=== PATIENT | female | born 2005 | race Hispanic/Latino ===

== ENCOUNTER 2024-08-17 17:02 | Emergency (ER) | payer BC, SELFPAY ==
[2024-08-17 17:08] VITALS: BP 122/76; PULSE 74; RESP 12; TEMP 36.9; O2SAT 99; BMI 31.1
--- NOTE | 2024-08-17 17:31 | ED.ABDPAIN ---
HPI - Abdominal Pain <Lia Sebastian PA-C - Last Filed: 08/17/24 20:07> General Chief Complaint: Abdominal Pain Stated Complaint: Abd Pain, Appendicitis Concerns Time Seen by Provider: 08/17/24 17:31 Source: patient Mode of arrival: Ambulatory History of Present Illness HPI narrative: This is a pleasant 19-year-old female with a past medical history of endometriosis who presents to the emergency department for right-sided abdominal pain since this morning. Patient reports when she woke up she had pain on the right side of her upper abdomen that has progressively been getting worse and been moving down to her right lower quadrant. States that the pain is now focus of the right lower quadrant of her abdomen and is constant in nature. States that while she was sitting up in the car on the way here the pain slightly improved, otherwise nothing makes it better. She has not tried any pain medications. She feels nauseous but has not vomited. Denies fevers, chills, chest pain, shortness of breath, diarrhea, vaginal discharge, hematuria, dysuria. She does admit to some constipation. She is currently . She is not allergic to any medications. LMP 07/30/24. Related Data Previous Rx's Medication Instructions Recorded ondansetron 4 mg disintegrating 4 mg PO Q8H PRN nausea and 08/17/24 tablet vomiting #12 tabs Allergies Allergy/AdvReac Type Severity Reaction Status Date / Time No Known Drug Allergies Allergy Verified 08/17/24 17:12 Review of Systems <Lia Sebastian PA-C - Last Filed: 08/17/24 20:07> Review of Systems ROS Unobtainable: All systems reviewed & are unremarkable except as noted in HPI and below Patient History <Lia Sebastian PA-C - Last Filed: 08/17/24 20:07> Social History Smoking Status: Never smoker Smoking Status: Never smoker alcohol intake frequency: holidays/special occasions only Substance Use Type: does not use Exam <Lia Sebastian PA-C - Last Filed: 08/17/24 20:07> Narrative Exam Narrative: GENERAL: 19 year old patient appears stated age. Well-developed patient, in no acute distress. HEAD: Atraumatic. Normocephalic. EYES: Extraocular motions intact. No scleral icterus. No injection or drainage. ENT: Nose without bleeding, purulent drainage. Throat without erythema, tonsillar hypertrophy or exudate. Airway patent. NECK: Trachea midline. Cervical ROM intact. CARDIOVASCULAR: Regular rate and rhythm. RESPIRATORY: ?Nonlabored respirations. ?Speaking in clear, full sentences. ?Clear to auscultation. Breath sounds equal bilaterally. No wheezes, rales, or rhonchi. ? GASTROINTESTINAL: RLQ abdominal tenderness to palpation, subjective rebound. No guarding. Abdomen is soft and nondistended. Bowel sounds present. No right upper quadrant, left upper quadrant, or left lower quadrant tenderness. EXTREMITIES: No edema or joint tenderness. BACK: Nontender without deformity or crepitance. No flank tenderness. NEURO: AOx3. ?Clear speech. ?Moves all 4 extremities appropriately. SKIN: No rash or erythema of visible areas Initial Vital Signs Initial Vital Signs: Vital Signs Temperature 98.5 F 08/17/24 17:08 Pulse Rate 74 08/17/24 17:08 Respiratory Rate 12 08/17/24 17:08 Blood Pressure 122/76 08/17/24 17:08 Pulse Oximetry 99 08/17/24 17:08 Oxygen Delivery Method Room Air 08/17/24 17:08 <Deja Vazquez MD - Last Filed: 08/18/24 01:04> Initial Vital Signs Initial Vital Signs: Vital Signs Temperature 98.5 F 08/17/24 17:08 Pulse Rate 74 08/17/24 17:08 Respiratory Rate 12 08/17/24 17:08 Blood Pressure 122/76 08/17/24 17:08 Pulse Oximetry 99 08/17/24 17:08 Oxygen Delivery Method Room Air 08/17/24 17:08 Course <Lia Sebastian PA-C - Last Filed: 08/17/24 20:07> Orders Ordered: ED Orders 08/17/24 17:13 EKG-12 Lead Stat 08/17/24 17:30 Complete Blood Count AUTO DIFF Stat Comprehensive Metabolic Panel Stat Lipase Stat 08/17/24 17:47 CT abdomen pelvis w con Stat Discontinued Medications Sodium Chloride (Normal Saline 0.9%) 1,000 mls @ 1,000 mls/hr IV BOLUS ONE Stop: 08/17/24 18:46 Last Admin: 08/17/24 18:11 Dose: 1,000 mls/hr Documented By: JUNAID Ketorolac Tromethamine (Ketorolac 30 Mg/Ml Vial) 15 mg IV NOW ONE Stop: 08/17/24 17:48 Last Admin: 08/17/24 18:32 Dose: 15 mg Documented By: JUNAID Ondansetron HCl (Ondansetron 4 Mg/2 Ml Inj) 4 mg IV NOW PRN PRN Reason: Nausea And Vomiting Last Admin: 08/17/24 17:44 Dose: 4 mg Documented By: JUNAID Ondansetron HCl (Ondansetron 4 Mg Odt) 4 mg PO NOW PRN PRN Reason: Nausea And Vomiting Reevaluation(s) Reevaluation #1: On re-evaluation of patient she is feeling slightly better, nausea resolved. Time: 18:46 Vital Signs Vital signs: Vital Signs - 8 hr 08/17/24 17:08 08/17/24 20:00 Temperature 98.5 F Pulse Rate 74 71 Respiratory Rate 12 16 Blood Pressure 122/76 115/64 Pulse Oximetry 99 100 Oxygen Delivery Method Room Air <Deja Vazquez MD - Last Filed: 08/18/24 01:04> Orders Ordered: ED Orders 08/17/24 17:13 EKG-12 Lead Stat 08/17/24 17:30 Complete Blood Count AUTO DIFF Stat Comprehensive Metabolic Panel Stat Lipase Stat 08/17/24 17:47 CT abdomen pelvis w con Stat Discontinued Medications Sodium Chloride (Normal Saline 0.9%) 1,000 mls @ 1,000 mls/hr IV BOLUS ONE Stop: 08/17/24 18:46 Last Admin: 08/17/24 18:11 Dose: 1,000 mls/hr Documented By: JUNAID Ketorolac Tromethamine (Ketorolac 30 Mg/Ml Vial) 15 mg IV NOW ONE Stop: 08/17/24 17:48 Last Admin: 08/17/24 18:32 Dose: 15 mg Documented By: JUNAID Ondansetron HCl (Ondansetron 4 Mg/2 Ml Inj) 4 mg IV NOW PRN PRN Reason: Nausea And Vomiting Last Admin: 08/17/24 17:44 Dose: 4 mg Documented By: JUNAID Ondansetron HCl (Ondansetron 4 Mg Odt) 4 mg PO NOW PRN PRN Reason: Nausea And Vomiting Vital Signs Vital signs: Vital Signs - 8 hr 08/17/24 17:08 08/17/24 20:00 Temperature 98.5 F Pulse Rate 74 71 Respiratory Rate 12 16 Blood Pressure 122/76 115/64 Pulse Oximetry 99 100 Oxygen Delivery Method Room Air MDM - Abdominal Pain <Lia C RICHARD Sebastian - Last Filed: 08/17/24 20:07> Lab Data 08/17/24 17:30 08/17/24 17:30 Labs: Lab Results 08/17/24 Range/Units 17:30 WBC 11.5 H (4.5-11.0) X10^3/uL RBC 5.03 (4.0-5.2) X10^6/uL Hgb 14.9 (12.0-16.0) g/dL Hct 44.7 (36-46) % MCV 89.0 (80-100) fL MCH 29.6 (26-34) PG MCHC 33.3 (30-36) % RDW 12.7 (11.6-14.8) % Plt Count 401 H (150-400) X10^3/uL Neut % (Auto) 68.0 (50-75) % Lymph % (Auto) 23.6 L (25-40) % [place] % (Auto) 6.5 (3-14) % Eos % (Auto) 1.2 L (2-4) % Baso % (Auto) 0.7 (0-2) % Neut # (Auto) 7800 H (5966-7545) /uL Lymph # (Auto) 2700 (6984-7940) /uL [place] # (Auto) 700 (0-900) /uL Eos # (Auto) 100 (0-450) /uL Baso # (Auto) 100 (0-100) /uL Sodium 133 L (137-145) mmol/L Potassium 3.7 (3.4-5.1) mmol/L Chloride 103 (98-107) mmol/L Carbon Dioxide 26 (22-32) mmol/L BUN 11 (7-17) mg/dL Creatinine 0.55 (0.52-1.04) mg/dL Estimated GFR > 60 (>60) mL/min BUN/Creatinine Ratio 20.0 (6-22) Glucose 86 (70-100) mg/dL Calcium 9.8 (8.4-10.2) mg/dL Total Bilirubin 0.4 (0.2-1.3) mg/dL AST 32 (14-36) IU/L ALT 36 H (<35) IU/L Alkaline Phosphatase 80 (38-126) U/L Total Protein 7.9 (6.3-8.2) g/dL Albumin 4.4 (3.5-5.0) g/dL Globulin 3.5 (1.7-4.1) g/dL Albumin/Globulin Ratio 1.3 (1.0-2.8) Lipase 37 (23-300) U/L Point of care testing: Point of Care Testing Test Results Negative Urine Dip Bedside Urine Glucose Negative Bedside Urine Bilirubin - Negative Bedside Urine Ketone +/- 5 Urine Specific [place] 1.030 Bedside Urine Occult Blood - Negative Bedside Urine pH 5.5 Bedside Urine Protein - Negative Bedside Urine Urobilinogen - Negative Bedside Urine Nitrite - Negative Bedside Urine Leukocytes - Negative Esterase Imaging Data CT scan - abdomen/pelvis: Radiologist's Impression: PROCEDURE: CT ABDOMEN PELVIS W CON INDICATIONS: Right sided abd pain; concern for appy; hx endometriosis TECHNIQUE: After the administration of intravenous contrast, axial sections acquired from the lung bases to the pubic symphysis. Coronal and sagittal reformats were performed. For radiation dose reduction, the following was used: automated exposure control, adjustment of mA and/or kV according to patient size. COMPARISON: None. FINDINGS: Image quality: Diagnostic. Lower Chest: No significant findings. ABDOMEN: Liver: No solid mass. Gallbladder: No radiopaque gallstones or wall thickening. Biliary ducts: No biliary dilation. Pancreas: No ductal dilation. Spleen: Size is within normal limits. Adrenal Glands: No adrenal nodules. Kidneys and Ureters: No hydronephrosis. No solid mass. No complex renal cystic lesion which requires follow up. Stomach and Bowel: Normal colonic caliber, without significant wall thickening. The appendix is not dilated, (2/111). Peritoneum: No abnormal intraperitoneal fluid. No free air. Ventral Wall: No significant ventral hernia. Abdominal Nodes: No retroperitoneal or mesenteric adenopathy by size criteria. Small mesenteric lymph nodes. Vessels: Aorta and inferior vena cava are normal in size. PELVIS: Pelvic Organs: Retroverted uterus. Small left ovarian cyst measuring 2.2 cm, (2/122). There is a small amount of free fluid in the pelvis. Bladder: No bladder wall thickening, accounting for underdistention. Pelvic Nodes: No enlarged lymph nodes. Miscellaneous: No inguinal hernias are seen. Bones: No aggressive osseous abnormality. IMPRESSION: 1. No acute abnormality identified. The appendix is not dilated. 2. Small left ovarian cyst measuring 2.2 cm. Trace free fluid in the pelvis. This could be physiologic. MDM Narrative Medical decision making narrative: 19-year-old female with a past medical history of endometriosis presents to the emergency department for right-sided abdominal pain today. Differential diagnosis includes but is not limited to appendicitis, ovarian cyst, ovarian cyst rupture, endometriosis complication, constipation, UTI, cholecystitis, pancreatitis, electrolyte abnormality, etc. On exam patient is in no acute distress, nontoxic-appearing, all vital signs within normal limits. She does have tenderness to palpation of the right lower quadrant of the abdomen. We will obtain abdominal labs, test, treat with fluids Toradol and Zofran and obtain a CT abdomen and pelvis with IV contrast. Patient's symptoms resolved completely with Toradol and Zofran. Her labs reveal very mildly elevated WBC count 11.5 And platelets 401. Neutrophils elevated at 7800. sodium slightly decreased at 133. Remainder of electrolytes within normal limits. Normal renal function. Normal lipase at 37. CT abdomen and pelvis with IV contrast reveals no acute abnormality. The appendix is not dilated. The patient does have a small left ovarian cyst with trace free fluid in the pelvis. Had an extensive discussion with the patient about her imaging results and labs. I printed her imaging results and provide her with a copy. Her symptoms have completely resolved and she is feeling much better. Abd soft/nontender. Discussed the possibility ovarian cyst or ovarian cyst rupture contributing to her pain. Also recommended MiraLax for constipation. Discussed strict ER return precautions and prompt follow up with OBGYN and PCP. She was prescribed Zofran and recommended ibuprofen/ Tylenol for pain. Patient verbalized understanding of all information, vital signs normal, stable for discharge. <Deja Vazquez MD - Last Filed: 08/18/24 01:04> Lab Data Labs: Lab Results 08/17/24 Range/Units 17:30 WBC 11.5 H (4.5-11.0) X10^3/uL RBC 5.03 (4.0-5.2) X10^6/uL Hgb 14.9 (12.0-16.0) g/dL Hct 44.7 (36-46) % MCV 89.0 (80-100) fL MCH 29.6 (26-34) PG MCHC 33.3 (30-36) % RDW 12.7 (11.6-14.8) % Plt Count 401 H (150-400) X10^3/uL Neut % (Auto) 68.0 (50-75) % Lymph % (Auto) 23.6 L (25-40) % [place] % (Auto) 6.5 (3-14) % Eos % (Auto) 1.2 L (2-4) % Baso % (Auto) 0.7 (0-2) % Neut # (Auto) 7800 H (2858-9997) /uL Lymph # (Auto) 2700 (5385-2838) /uL [place] # (Auto) 700 (0-900) /uL Eos # (Auto) 100 (0-450) /uL Baso # (Auto) 100 (0-100) /uL Sodium 133 L (137-145) mmol/L Potassium 3.7 (3.4-5.1) mmol/L Chloride 103 (98-107) mmol/L Carbon Dioxide 26 (22-32) mmol/L BUN 11 (7-17) mg/dL Creatinine 0.55 (0.52-1.04) mg/dL Estimated GFR > 60 (>60) mL/min BUN/Creatinine Ratio 20.0 (6-22) Glucose 86 (70-100) mg/dL Calcium 9.8 (8.4-10.2) mg/dL Total Bilirubin 0.4 (0.2-1.3) mg/dL AST 32 (14-36) IU/L ALT 36 H (<35) IU/L Alkaline Phosphatase 80 (38-126) U/L Total Protein 7.9 (6.3-8.2) g/dL Albumin 4.4 (3.5-5.0) g/dL Globulin 3.5 (1.7-4.1) g/dL Albumin/Globulin Ratio 1.3 (1.0-2.8) Lipase 37 (23-300) U/L Point of care testing: Point of Care Testing Test Results Negative Urine Dip Bedside Urine Glucose Negative Bedside Urine Bilirubin - Negative Bedside Urine Ketone +/- 5 Urine Specific [place] 1.030 Bedside Urine Occult Blood - Negative Bedside Urine pH 5.5 Bedside Urine Protein - Negative Bedside Urine Urobilinogen - Negative Bedside Urine Nitrite - Negative Bedside Urine Leukocytes - Negative Esterase Discharge Plan Departure Patient Disposition: Home Clinical Impression: Cyst of left ovary Abdominal pain Qualifiers: Abdominal location: right lower quadrant Qualified Code(s): R10.31 - Right lower quadrant pain Instructions: DI for Ovarian Cyst Activity Restrictions/Additional Instructions: Dear Larissa, Your diagnosis today is Abdominal pain and ovarian cyst. Please use ibuprofen and Tylenol for pain in addition to the prescribed nausea medicine. Return to the ER immediately if you develop fevers, worsening pain, or any other concerns. Otherwise please follow up with your OBGYN for further evaluation. Please take Ibuprofen (Motrin/Advil) or Acetaminophen (Tylenol) for pain. These are available over the counter. You may take Ibuprofen 600 mg every 8 hours with food for pain. You may also take Acetaminophen 650 mg every 4-6 hours for pain. Do not exceed 3000 mg of Tylenol a day as this can cause liver damage. Do not drink alcohol with either of these medications. You may also take [id number] MiraLax if needed for constipation. Please follow up with your primary care doctor within the next 2-3 days for ER follow-up. (If you do not have a PCP you can call [phone]. to schedule an appointment with an [facility] Primary Care Provider) IF YOU DEVELOP ANY NEW OR WORSENING SYMPTOMS, RETURN TO THE ER! Please read the attached instructions, they highlight more specific treatments and interventions for you at home. Thank you for letting me participate in your care, Lia Sebastian PA-C Prescriptions: New ondansetron 4 mg tablet,disintegrating 4 mg PO Q8H PRN (Reason: nausea and vomiting) Qty: 12 0RF Stand Alone Forms: Patient Portal/API/Survey ED Sign-out <Deja Vazquez MD - Last Filed: 08/18/24 01:04> Cosign ED Attending Cospatriciaature Attestation: I did not see this patient. I was available all times for consultation.
[2024-08-17 17:38] LABS: Add Manual Diff / Slide Review NO; Basophils Absolute Auto 100 /uL (0-100); Basophils Percent Auto 0.7 % (0-2); Eosinophils Absolute Auto 100 /uL (0-450); Eosinophils Percent Auto 1.2 % (2-4); Hematocrit 44.7 % (36-46); Hemoglobin 14.9 g/dL (12.0-16.0); Lymphocytes Absolute Auto 2700 /uL (1100-4500); Lymphocytes Percent Auto 23.6 % (25-40); Mean Corpuscular HGB Conc 33.3 % (30-36); Mean Corpuscular Hemoglobin 29.6 PG (26-34); Monocytes Absolute Auto 700 /uL (0-900); Monocytes Percent Auto 6.5 % (3-14); Neutrophils Absolute Auto 7800 /uL (1500-7000); Platelet Count 401 X10^3/uL (150-400); Red Blood Cell Count 5.03 X10^6/uL (4.0-5.2); Red Cell Distribution Width 12.7 % (11.6-14.8); White Blood Cell Count 11.5 X10^3/uL (4.5-11.0)
[2024-08-17] MEDS: ONDANSETRON 4 MG/2 ML INJ IV (17:44)
--- NOTE | 2024-08-17 17:47 | DI.CT.S_ITS ---
PROCEDURE: CT ABDOMEN PELVIS W CON INDICATIONS: Right sided abd pain; concern for appy; hx endometriosis TECHNIQUE: After the administration of intravenous contrast, axial sections acquired from the lung bases to the pubic symphysis. Coronal and sagittal reformats were performed. For radiation dose reduction, the following was used: automated exposure control, adjustment of mA and/or kV according to patient size. COMPARISON: None. FINDINGS: Image quality: Diagnostic. Lower Chest: No significant findings. ABDOMEN: Liver: No solid mass. Gallbladder: No radiopaque gallstones or wall thickening. Biliary ducts: No biliary dilation. Pancreas: No ductal dilation. Spleen: Size is within normal limits. Adrenal Glands: No adrenal nodules. Kidneys and Ureters: No hydronephrosis. No solid mass. No complex renal cystic lesion which requires follow up. Stomach and Bowel: Normal colonic caliber, without significant wall thickening. The appendix is not dilated, (2/111). Peritoneum: No abnormal intraperitoneal fluid. No free air. Ventral Wall: No significant ventral hernia. Abdominal Nodes: No retroperitoneal or mesenteric adenopathy by size criteria. Small mesenteric lymph nodes. Vessels: Aorta and inferior vena cava are normal in size. PELVIS: Pelvic Organs: Retroverted uterus. Small left ovarian cyst measuring 2.2 cm, (2/122). There is a small amount of free fluid in the pelvis. Bladder: No bladder wall thickening, accounting for underdistention. Pelvic Nodes: No enlarged lymph nodes. Miscellaneous: No inguinal hernias are seen. Bones: No aggressive osseous abnormality. IMPRESSION: 1. No acute abnormality identified. The appendix is not dilated. 2. Small left ovarian cyst measuring 2.2 cm. Trace free fluid in the pelvis. This could be physiologic. Dictated by: Thomas Conner M.D. on 08/17/2024 at 19:26 Approved by: Thomas Conner M.D. on 08/17/2024 at 19:34
[2024-08-17 17:53] LABS: Alanine Aminotransferase 36 IU/L (<35); Albumin 4.4 g/dL (3.5-5.0); Albumin Globulin Ratio 1.3 (1.0-2.8); Alkaline Phosphatase 80 U/L (38-126); Aspartate Aminotransferase 32 IU/L (14-36); Bilirubin Total 0.4 mg/dL (0.2-1.3); Blood Urea Nitrogen 11 mg/dL (7-17); Calcium 9.8 mg/dL (8.4-10.2); Carbon Dioxide 26 mmol/L (22-32); Chloride 103 mmol/L (98-107); Estimated Glomerular Filt Rate > 60 mL/min (>60); Globulin 3.5 g/dL (1.7-4.1); Glucose 86 mg/dL (70-100); HEMOLYSIS < 15 (0-50); Lipase 37 U/L (23-300); Potassium 3.7 mmol/L (3.4-5.1); Sodium 133 mmol/L (137-145); Total Protein 7.9 g/dL (6.3-8.2)
[2024-08-17] MEDS: SODIUM CHLORIDE 0.9% 1,000 ML 1000 ML IV (18:11)
[2024-08-17] MEDS: KETOROLAC 30 MG/ML VIAL 15 MG IV (18:32)
[2024-08-17 20:00] VITALS: BP 115/64; PULSE 71; RESP 16; O2SAT 100
== END 2024-08-17 20:04 | disposition home or self-care (01) ==
PROVIDERS: Emergency Medicine; Emergency Provider Physician Assistant
DX: N83.201 Unspecified ovarian cyst, right side (principal); K59.00 Constipation, unspecified; R10.31 Right lower quadrant pain
CPT/HCPCS: 36415; 74177; 80053; 81003; 81025; 83690; 85025; 96374; 96375; 99284; J1885; J2405; Q9967

== ENCOUNTER → 2024-12-02 13:01 | Outpatient (CLI) | payer BC, SELFPAY ==
--- NOTE | 2024-12-02 13:03 | DI.RAD.S_ITS ---
PROCEDURE: XR ANKLE RT MIN 3V INDICATIONS: Discomfort medial ankle TECHNIQUE: 3 views of the ankle were acquired. COMPARISON: None. FINDINGS: Bones: No fractures or dislocations. Ankle mortise is normally aligned. No suspicious bony lesions. Soft tissues: No tibiotalar joint effusion. Achilles tendon appears normal. IMPRESSION: No acute bony abnormality or significant effusion. Dictated by: Britany Ruffin M.D. on 12/02/2024 at 12:43 Approved by: Britany Ruffin M.D. on 12/02/2024 at 12:45
== END ==
PROVIDERS: Referring Provider Nurse Practitioner Family; Visit Provider Nurse Practitioner Family
DX: S96.911A Strain of unspecified muscle and tendon at ankle and foot level, right foot, initial encounter (principal); X58.XXXA Exposure to other specified factors, initial encounter
CPT/HCPCS: 73610